=== PATIENT | female | born 1950 | race Caucasian/White ===

== ENCOUNTER 2021-12-27 08:49 | Outpatient (RCR) | payer MEDICARE, SELFPAY | END 2022-01-08 23:59 | disposition home or self-care (01) | LOC: CCIC 08:49 | PROVIDERS: PCP Family Medicine; Visit Provider Internal Medicine Hematology & Oncology | DX: C50.911 Malignant neoplasm of unspecified site of right female breast (principal); Z17.0 Estrogen receptor positive status [ER+]; D05.11 Intraductal carcinoma in situ of right breast; Z79.811 Long term (current) use of aromatase inhibitors; M85.80 Other specified disorders of bone density and structure, unspecified site; L59.8 Other specified disorders of the skin and subcutaneous tissue related to radiation | CPT/HCPCS: 99212; 99214 ==

== ENCOUNTER 2022-07-04 08:55 | Outpatient (CLI) | payer MEDICARE, SELFPAY ==
--- NOTE | 2022-07-04 09:15 | CRLHL7_ITS ---
For Patients: As a result of the Century Cures Act, medical imaging exams and procedure reports are released immediately into your electronic medical record. You may view this report before your referring provider. If you have questions, please contact your health care provider. BILATERAL SCREENING MAMMOGRAM WITH COMPUTER-AIDED DETECTION AND TOMOSYNTHESIS TECHNIQUE: CC and MLO views were obtained. These mammographic images have been obtained using full-field digital technique. These mammographic images were interpreted with the benefit of computer-aided detection. Breast tomosynthesis was used in this interpretation. COMPARISON FILM: 05/19/21, 03/02/20, 12/31/18. FINDINGS: There are scattered areas of fibroglandular density. IMPRESSION: There is no radiographic evidence for malignancy. ASSESSMENT: BI-RADS Category 2: Benign RECOMMENDATION: Routine screening mammogram in 1 year. A lay language report of this examination will be provided to the patient. VERONICA BECERRIL M.D. Diagnostic/Nuclear Medicine Radiologist [email or web address] Transcribed: 3:[address]/Dictated by: Veronica Becerril MD @ 07/04/2022 9:30:00 AM (Electronically Signed)
== END 2022-07-04 08:56 | disposition home or self-care (01) ==
LOC: MAMMO 08:55
PROVIDERS: PCP Family Medicine; Visit Provider Internal Medicine Hematology & Oncology
DX: Z12.31 Encounter for screening mammogram for malignant neoplasm of breast (principal)
CPT/HCPCS: 77063; 77067

== ENCOUNTER 2022-07-10 11:04 | Outpatient (CLI) | payer MEDICARE, SELFPAY ==
[2022-07-10 12:22] LABS: Albumin* 3.9 g/dL (3.3-5.0); Chloride* 105 mmol/L (96-114)
[2022-07-10 12:23] LABS: Potassium* 4.3 mmol/L (3.6-5.1); Sodium* 138 mmol/L (135-149)
[2022-07-10 12:25] LABS: Alkaline Phosphatase* 107 U/L (40-150); Aspartate Amino Transferase* 23 U/L (12-35); Bilirubin Total* 0.5 mg/dL (0.1-1.5); Blood Urea Nitrogen* 17 mg/dL (7-30); Carbon Dioxide* 29 mmol/L (20-32); Cholesterol* 169 mg/dL (90-199); Creatinine* 0.9 mg/dL (0.5-1.5); Estimated Glomerular Filt Rate 67 ml/min; Total Protein* 6.7 g/dL (6.0-8.3)
[2022-07-10 12:26] LABS: Alanine Aminotransferase* 26 U/L (4-35); Glucose* 106 mg/dL (60-115); HDL Cholesterol* 61 mg/dL (>=50); LDL Cholesterol Calculated 89 mg/dL (<100); Triglycerides* 94 mg/dL (40-149)
[2022-07-10 12:57] LABS: Vitamin D 25 Hydroxy* 55 ng/mL (30-80)
== END 2022-07-10 11:05 | disposition home or self-care (01) ==
PROVIDERS: PCP Family Medicine; Visit Provider Family Medicine
DX: Z00.00 Encounter for general adult medical examination without abnormal findings (principal); E78.5 Hyperlipidemia, unspecified; M85.80 Other specified disorders of bone density and structure, unspecified site; E66.9 Obesity, unspecified; R73.03 Prediabetes
CPT/HCPCS: 80053; 80061; 82306

== ENCOUNTER 2022-08-21 09:16 | Outpatient (CLI) | payer MEDICARE, SELFPAY | END 2022-08-21 09:17 | disposition home or self-care (01) | LOC: OP CLINIC 09:18 | PROVIDERS: PCP Family Medicine; Visit Provider Surgery | DX: Z12.11 Encounter for screening for malignant neoplasm of colon (principal); K63.5 Polyp of colon; Z86.010 Personal history of colon polyps | CPT/HCPCS: 45385; 88302; 88305; 99153; J2250; J3010 ==

== ENCOUNTER 2022-09-11 13:30 | Outpatient (RCR) | payer MEDICARE, SELFPAY | END 2022-10-09 23:59 | disposition home or self-care (01) | LOC: CCIC 13:30 | PROVIDERS: PCP Family Medicine; Visit Provider Physician Assistant | DX: C50.911 Malignant neoplasm of unspecified site of right female breast (principal); Z17.0 Estrogen receptor positive status [ER+]; Z79.811 Long term (current) use of aromatase inhibitors; M85.80 Other specified disorders of bone density and structure, unspecified site; L73.2 Hidradenitis suppurativa | CPT/HCPCS: 99212; 99214 ==

== ENCOUNTER 2023-07-11 13:03 | Outpatient (RCR) | payer MEDICARE, OTHER, SELFPAY | END 2023-07-31 23:59 | disposition home or self-care (01) | LOC: CCIC 13:03 | PROVIDERS: PCP Family Medicine; Visit Provider Internal Medicine Hematology & Oncology | DX: C50.911 Malignant neoplasm of unspecified site of right female breast (principal); Z17.0 Estrogen receptor positive status [ER+]; Z79.811 Long term (current) use of aromatase inhibitors; M85.80 Other specified disorders of bone density and structure, unspecified site; L59.8 Other specified disorders of the skin and subcutaneous tissue related to radiation | CPT/HCPCS: 99212; 99214; 99215; G0463 ==

== ENCOUNTER 2023-07-26 09:16 | Outpatient (CLI) | payer MEDICARE, OTHER, SELFPAY ==
--- NOTE | 2023-07-26 09:45 | MM_ITS ---
Patient: MOISÉS PUENTE Facility:?[facility] Patient ID:?[id number] Site Patient ID:?[id number]. Site :?[id number] Study:?XRay-Breast Bilateral 3D W/CAD-07/26/2023 10:04:31 AM Ordering Physician:Mason Final Report: BILATERAL DIGITAL TOMOSYNTHESIS SCREENING MAMMOGRAM WITH COMPUTER-AIDED DETECTION AND TOMOSYNTHESIS 07/26/2023 CLINICAL HISTORY: Routine screening exam. COMPARISON: 07/04/2022, 05/19/2021, 03/02/2020. TECHNIQUE: Digital tomosynthesis mammogram in CC and MLO projections including computer- aided detection (CAD) and tomosynthesis. BREAST COMPOSITION: Heterogeneously dense. FINDINGS: RIGHT Breast: Posttreatment changes. No suspicious findings. LEFT Breast: No suspicious findings. IMPRESSION: No suspicious findings. RECOMMENDATIONS: Annual bilateral screening mammography. BI-RADS Category 2. Benign A lay language report of this examination will be provided to the patient. Dictated by Lm Nance MD @ 07/26/2023 11:02:28 AM Signed by: Lm Nance @ 07/26/2023 11:02:28 AM (Electronic Signature) Signed by:?Lm Nance MD @07/26/2023 12:48:02 PM (Electronic Signature)
== END 2023-07-26 09:17 | disposition home or self-care (01) ==
LOC: MAMMO 09:16
PROVIDERS: PCP Family Medicine; Visit Provider Family Medicine
DX: Z12.31 Encounter for screening mammogram for malignant neoplasm of breast (principal); R92.2 Inconclusive mammogram
CPT/HCPCS: 77063; 77067

== ENCOUNTER 2023-07-27 08:05 | Outpatient (CLI) | payer MEDICARE, OTHER, SELFPAY | END 2023-07-27 08:06 | disposition home or self-care (01) | LOC: NFLDREF 12:25 | PROVIDERS: PCP Family Medicine; Referring Provider Family Medicine; Visit Provider Family Medicine | DX: E55.9 Vitamin D deficiency, unspecified (principal); E78.5 Hyperlipidemia, unspecified; I10 Essential (primary) hypertension; M85.80 Other specified disorders of bone density and structure, unspecified site; R73.03 Prediabetes | CPT/HCPCS: 80053; 80061; 82306 ==

== ENCOUNTER 2023-09-19 08:04 | Outpatient (CLI) | payer MEDICARE, OTHER, SELFPAY | END 2023-09-19 08:05 | disposition home or self-care (01) | LOC: NFLDREF 09-21 07:05 | PROVIDERS: PCP Family Medicine; Referring Provider Family Medicine; Visit Provider Family Medicine | DX: I10 Essential (primary) hypertension (principal) | CPT/HCPCS: 80048 ==

== ENCOUNTER 2023-10-03 08:02 | Outpatient (CLI) | payer MEDICARE, OTHER, SELFPAY | END 2023-10-03 08:03 | disposition home or self-care (01) | LOC: NFLDREF 10-04 07:25 | PROVIDERS: PCP Family Medicine; Referring Provider Family Medicine; Visit Provider Family Medicine | DX: E87.5 Hyperkalemia (principal) | CPT/HCPCS: 80048 ==

== ENCOUNTER 2023-10-24 12:41 | Outpatient (CLI) | payer MEDICARE, OTHER, SELFPAY ==
--- NOTE | 2023-10-24 13:00 | XR_ITS ---
Patient: MOISÉS PUENTE Facility:?[facility] Patient ID:?[id number] Site Patient ID:?[id number]. Site :?10/02/1955 Study:?DEXA-Bone Density -10/24/2023 1:27:59 PM Ordering Physician:JOSEF Final Report: DXA BONE MINERAL DENSITY STUDY Current height (in): 61.5. Weight (lb): 187.0. Menopause age: 53. Ethnicity: White. Reason for exam: Osteopenia. Aromatase inhibitor use. 1. Have you had a previous hip or vertebral fracture? No. 2. Have you had any fractures during your adult life which did not result from significant trauma (e.g., auto accident)? Yes. 3. Did either of your parents have a hip fracture? Yes. 4. Do you smoke? No. 5. Have you ever taken Glucocorticoids? No. 6. Do you have rheumatoid arthritis? No. 7. Do you have secondary osteoporosis? No. 8. Do you drink 3 or more alcoholic drinks per day? No. 9. Are you being treated for osteoporosis? No. 10. Have you ever taken any of the following medications: Actonel, Evista, Fosamax, Miacalcin, Reclast, Boniva, Forteo, HRT (i.e. estrogen/hormone therapy), Protelos, Prolia, Vitamin D, Calcium, other ? please specify. ANSWER: Yes. Vitamin D, calcium, HRT. 11. Do you have any of the following medical conditions: Anorexia or bulimia, asthma or emphysema, end stage renal disease, hyperparathyroidism, any seizure disorders, cancer, inflammatory bowel diseases, hysterectomy, other ? please specify. ANSWER: Yes, cancer. 12. What was your maximum height (inches)? 62. 13. Do you perform weight bearing exercise regularly? No. 14. Do you regularly consume dairy products? Yes. 15. Do you drink caffeinated beverages? Yes. 16. At what age did your period start? 11. 17. Are you premenopausal? No. 18. How many full-term pregnancies have you had? 1. 19. Have you ever missed your period for more than 6 months in a row (not including or menopause)? No. TECHNIQUE: Bone mineral density study was performed using the [employer]. FINDINGS: The results of the study expressed as bone mineral density (BMD) are as follows: Lumbar spine L1 to L4: BMD: 0.863 g/cm2. T-score: -1.7. Z-score: 0.7 Neck Left: BMD: 0.632 g/cm2. T-score: -2.0. Z-score: 0.1 Right: BMD: 0.636 g/cm2. T-score: -1.9. Z-score: 0.2 Total Left: BMD: 0.878 g/cm2. T-score: -0.5. Z-score: 1.3 Right: BMD: 0.871 g/cm2. T-score: -0.6. Z-score: 1.2 IMPRESSION: Osteopenia. *Comparison exams done prior to 11/2019 were performed on different unit, [employer]. COMPARISON: Compared with scan of 06/16/2021, the bone mineral density has increased by 3.1 percent at the spine and decreased by 1.2 percent at the hip. FRAX 10-year Fracture Risk Major Osteoporotic Fracture: 30 percent Hip Fracture: 16 percent Reported Risk Factors: [place] () Neck BMD = 0.632, BMI = 34.8 Lm Nance M.D. Diagnostic Radiologist [email or web address] CROW/jovany: D& Transcribed: 12:33 pm DW/Dictated by: Lm Nance MD @ 10/25/2023 11:10:00 AM Signed by:?Lm Nance MD @10/25/2023 1:07:56 PM (Electronic Signature)
== END 2023-10-24 12:42 | disposition home or self-care (01) ==
LOC: RAD 12:41
PROVIDERS: PCP Family Medicine; Visit Provider Internal Medicine Hematology & Oncology
DX: M85.80 Other specified disorders of bone density and structure, unspecified site (principal); M85.89 Other specified disorders of bone density and structure, multiple sites; Z79.811 Long term (current) use of aromatase inhibitors
CPT/HCPCS: 77080

== ENCOUNTER 2024-04-28 10:30 | Outpatient (RCR) | payer MEDICARE, OTHER, SELFPAY | END 2024-04-28 23:59 | disposition home or self-care (01) | LOC: CCIC 10:30 | PROVIDERS: PCP Family Medicine; Visit Provider Physician Assistant | DX: C50.911 Malignant neoplasm of unspecified site of right female breast (principal); Z17.0 Estrogen receptor positive status [ER+]; Z79.811 Long term (current) use of aromatase inhibitors; M85.80 Other specified disorders of bone density and structure, unspecified site; I10 Essential (primary) hypertension | CPT/HCPCS: 99214; G0463 ==

== ENCOUNTER 2025-02-02 08:00 | Outpatient (CLI) | payer MEDICARE, OTHER, SELFPAY | END 2025-02-02 08:01 | disposition home or self-care (01) | LOC: NFLDREF 02-03 18:01 | PROVIDERS: PCP Family Medicine; Referring Provider Family Medicine; Visit Provider Family Medicine | DX: E78.5 Hyperlipidemia, unspecified (principal); I10 Essential (primary) hypertension; R73.03 Prediabetes; E55.9 Vitamin D deficiency, unspecified; M85.89 Other specified disorders of bone density and structure, multiple sites | CPT/HCPCS: 80053; 80061; 82306 ==

== ENCOUNTER 2025-02-05 11:28 | Outpatient (CLI) | payer MEDICARE, OTHER, SELFPAY ==
--- NOTE | 2025-02-05 11:30 | CRLHL7_ITS ---
For Patients: As a result of the Cures Act, medical imaging exams and procedure reports are released immediately into your electronic medical record. You may view this report before your referring provider. If you have questions, please contact your health care provider. BILATERAL DIAGNOSTIC MAMMOGRAM WITH COMPUTER-AIDED DETECTION AND TOMOSYNTHESIS RIGHT BREAST ULTRASOUND CLINICAL HISTORY: RIGHT breast erythema. COMPARISON: 07/26/2023, 07/04/2022, 06/28/2021. TECHNIQUE: Digital BILATERAL mammogram in four projections with computer-aided detection. Tomosynthesis was used in this interpretation. Real-time ultrasound imaging of RIGHT breast with imaging documentation. BREAST COMPOSITION: There are scattered areas of fibroglandular density. FINDINGS: 3D CC/MLO BILATERAL mammogram images submitted. Posttreatment changes RIGHT breast. Benign calcification LEFT breast. No suspicious masses or architectural distortion. Targeted RIGHT breast ultrasound performed in the areas of concern at 2 o`clock 7 cm from the nipple and 12 o`clock 9 cm from the nipple. Normal breast tissue is present. No fluid collection or mass. No abscess. No sebaceous cyst. IMPRESSION: No evidence of malignancy. RECOMMENDATIONS: Routine screening mammography. Clinical follow-up. A lay language report of this examination will be provided to the patient. BI-RADS Category 2: Benign Dictated by Lm Nance MD @ 02/05/2025 2:22:52 PM /sp SP/Dictated by: Lm Nance MD @ 02/05/2025 2:22:00 PM (Electronically Signed)
--- NOTE | 2025-02-05 12:00 | CRLHL7_ITS ---
For Patients: As a result of the Century Cures Act, medical imaging exams and procedure reports are released immediately into your electronic medical record. You may view this report before your referring provider. If you have questions, please contact your health care provider. PLEASE SEE BILATERAL BREAST DIAGNOSTIC MAMMOGRAM PERFORMED SAME DAY. CRL:sp SP/Dictated by: Lm Nance MD @ 02/05/2025 2:23:00 PM (Electronically Signed)
== END 2025-02-05 11:29 | disposition home or self-care (01) ==
PROVIDERS: PCP Family Medicine; Visit Provider Physician Assistant
DX: C50.911 Malignant neoplasm of unspecified site of right female breast (principal); L53.9 Erythematous condition, unspecified
CPT/HCPCS: 76642; 77066; G0279

== ENCOUNTER 2025-02-10 08:22 | Outpatient (CLI) | payer MEDICARE, OTHER, SELFPAY | END 2025-02-10 08:23 | disposition home or self-care (01) | LOC: NFLDREF 02-11 04:53 | PROVIDERS: PCP Family Medicine; Referring Provider Family Medicine; Visit Provider Obstetrics & Gynecology | DX: R33.9 Retention of urine, unspecified (principal) | CPT/HCPCS: 87086 ==

== ENCOUNTER 2025-02-19 07:15 | Outpatient (CLI) | payer MEDICARE, OTHER, SELFPAY ==
[2025-02-19 10:01] VITALS: BMI 35.7
== END 2025-02-19 07:16 | disposition home or self-care (01) ==
LOC: NUTRITION 07:16
PROVIDERS: PCP Family Medicine; Visit Provider Dietitian, Registered
DX: E66.9 Obesity, unspecified (principal); Z68.36 Body mass index [BMI] 36.0-36.9, adult; Z71.3 Dietary counseling and surveillance
CPT/HCPCS: G0463

== ENCOUNTER 2025-03-05 11:11 | Outpatient (CLI) | payer MEDICARE, OTHER, SELFPAY ==
[2025-03-05 09:41] VITALS: BMI 35.7
== END 2025-03-05 11:12 | disposition home or self-care (01) ==
LOC: NUTRITION 11:12
PROVIDERS: PCP Family Medicine; Visit Provider Dietitian, Registered
DX: E66.9 Obesity, unspecified (principal); Z68.36 Body mass index [BMI] 36.0-36.9, adult; Z71.3 Dietary counseling and surveillance
CPT/HCPCS: G0463

== ENCOUNTER 2025-04-30 13:39 | Outpatient (CLI) | payer MEDICARE, OTHER, SELFPAY | END 2025-04-30 13:40 | disposition home or self-care (01) | LOC: NFLDREF 13:41 | PROVIDERS: PCP Family Medicine; Visit Provider Family Medicine | DX: Z01.818 Encounter for other preprocedural examination (principal); I10 Essential (primary) hypertension | CPT/HCPCS: 80048 ==

== ENCOUNTER 2025-05-20 09:29 | Day surgery (SDC) | payer MEDICARE, OTHER, SELFPAY ==
[2025-05-20] MEDS: LACTATED RINGERS 1000 ML 1,000 ML 100 ML IV ×2 (09:35→13:43)
[2025-05-20 09:46] VITALS: BMI 34.9
[2025-05-20 10:09] VITALS: BP 137/77; PULSE 77; RESP 16; TEMP 36.9; O2SAT 96
[2025-05-20] MEDS: SODIUM CHLORIDE 0.9 % (FLUSH) 10 ML SYRINGE IVF (10:12)
--- NOTE | 2025-05-20 11:51 | P.ANES_ITS ---
Anesthesia Charges Start Date/Time Anesthesia Start Date: 05/20/25 Anesthesia Start Time: 11:56 Stop Date/Time Anesthesia Stop Date: 05/20/25 Anesthesia Stop Time: 14:00 Summary Extremes of Age - Over 70 or under 1: MDA Coding CPT Codes CPT Codes: ANESTH LOWER LEG BONE SURG - 01126 ([id number]) P2 - PATIENT W/MILD SYST DISEASE, QK - FLOUR MIXER 2-4 CNCRNT ANES PROC, QX - BAT CARRIER SVC W/ MD MED DIRECTION Additional Codes: Summary - Extremes of Age - Over 70 or under 1: MDA ([id number])
--- NOTE | 2025-05-20 11:51 | W.ANESCHARGE ---
Anesthesia Charges Start Date/Time Anesthesia Start Date: 05/20/25 Anesthesia Start Time: 11:56 Stop Date/Time Anesthesia Stop Date: 05/20/25 Anesthesia Stop Time: 14:00 Summary Extremes of Age - Over 70 or under 1: MDA Coding CPT Codes CPT Codes: ANESTH LOWER LEG BONE SURG - 46573 ([id number]) P2 - PATIENT W/MILD SYST DISEASE, QK - WEBSPHERE DEVELOPER 2-4 CNCRNT ANES PROC, QX - FINISH SANDER SVC W/ MD MED DIRECTION Additional Codes: Summary - Extremes of Age - Over 70 or under 1: MDA ([id number])
[2025-05-20] MEDS: BUPIVACAINE 0.25% 30 ML INJECTION (13:44)
[2025-05-20 13:58] VITALS: BP 116/64; PULSE 64; RESP 14; TEMP 36.4; O2SAT 96
--- NOTE | 2025-05-20 14:04 | W.PODPROC_ITS ---
Date of Procedure: 05/20/25 Time Seen by Provider: 14:04 Surgeon: Reva Hernandez DPM Co-Surgeon: Prince Hein DPM Pre-op Diagnosis: 1. Hallux rigidus, right foot 2. Ganglion cyst, right foot Post-op Diagnosis: 1. Hallux rigidus, right foot 2. Ganglion cyst, right foot Type of Procedure: 1. 1st MPJ fusion right foot 2. Ganglion cyst excision right foot 3. Bone graft harvest right foot Procedure Description: The patient was identified prior to being brought back into the operating room using their name and date of as patient identifiers. The intended surgical care plan was then reviewed in detail with the patient as well as rationale for surgery, most common risks, complications, and expected recovery course. The patient was given opportunity to ask questions, which were to the best of my ability. Patient ultimately voiced no questions or concerns and agreed to proceed forward with the surgery as planned. The patient was brought from the preoperative holding area to the operating room, and placed on the operating room table in the supine positions. At this time a timeout was performed by myself and operating room staff to identify the proper patient, site and operation to be performed. A well padded pneumatic ankle tourniquet was applied to the patient's right lower extremity. The left extremity was then scrubbed, prepped and draped in the normal sterile fashion.? The lateral aspect of the calcaneus was penetrated with a large bore needle using standard technique and bone marrow along with chips of cancellous bone within the calcaneus was aspirated in 0.5-cc increments with redirection between each increment until an appropriate volume of bone marrow aspirate was obtained for use with the operative procedure performed. The integrity of the bone marrow aspiration/bone graft site was verified with stress palpation. A linear incision was made on the dorsal-medial aspect of the right first metatarsal-phalangeal joint of the operative foot and the incision deepened through the subcutaneous layers with care taken to identify, retract, and protect all vital structures and coagulate any bleeders as necessary. A large and mobile, fluid-filled mass was encountered along the extensor hallucis longus. Metzenbaum scissors were utilized to bluntly dissect the mass from the overlying skin and underlying deep tissues. There were no incorporations of neurovascular structures into the mass. The mass was lanced and excised from the tendon sheath and passed off the field in total. The area once occupied by the mass was thoroughly inspected for any remnants. None were found. The incision was then deepened to the capsule and periosteum overlying the first metatarsal-phalangeal joint where a linear capsulotomy? was performed to free the dorsal, medial, and lateral aspects of the first metatarsal head and base of the proximal phalanx. The first metatarsal head, base of the proximal phalanx, and sesamoids were visualized and the joint was deemed non-salvageable. Using a combination of hand-held and power instruments, the first metatarsal head and base of the proximal phalanx were resected in [id number] fashion followed by fenestration of the remaining subchondral bone plate to expose raw cancellous bone substrate throughout the operative site. The base of the proximal phalanx was aligned according to the patients anatomic and functional needs paying attention to standard guidelines for optimum position and maintained in this position manually. The forefoot was loaded and anatomic soft-tissue and osseous reduction was appreciated with good osseous apposition noted. The previous created bone graft mixture was packed in the osseous defects to promote healing. A K wire was temporarily used to provide fixation. A dorsal locking plate was placed over the fusion site. Distal locking screws were deployed and the compression plate mechanism was used to provide compression across the arthrodesis site with osseous apposition maintained. Additional locking screws were deployed along the proximal aspect the plate. Intra-operative image intensification demonstrated proper alignment, stability, osseous apposition, and screw placement. The K wires were removed at this time. Intra-operative im age intensification demonstrated proper alignment, stability, osseous apposition, and plate and screw placement. The surgical sites were copiously irrigated with sterile saline and hemostasis obtained with electrocautery. The deep tissues were approximated with absorbable suture and the skin edges approximated without tension using non-absorbable sutures. Upon release of the pneumatic tourniquet, immediate reperfusion of toes 1 through 5 was noted. A postoperative dressing consisting of xeroform, cast padding, Kerlix, 4 x 4's, and an GIANNA bandage was applied to the patient's left foot. The patient was transferred from the operating room to the post anesthesia care unit with vital signs stable and vascular status intact to the right lower extremity. The patient appeared to tolerate both the procedure and anesthesia well. Anesthesia: MAC and local (30cc of 0.25% marcaine plain ) Hemostasis: ankle (250mmHg for 91 min ) Estimated blood loss (mL): 15 Provider Operated C-arm: 8 images taken with a total of 16 sec of fluoro time operated by myself Implants: Max force compression plate (arthrex), locking screws x 5, nonlocking screw x1 Specimens: none sent Disposition: same day
--- NOTE | 2025-05-20 14:05 | P.ANES_ITS ---
Anesthesia Charges Start Date/Time Anesthesia Start Date: 05/20/25 Anesthesia Start Time: 11:56 Stop Date/Time Anesthesia Stop Date: 05/20/25 Anesthesia Stop Time: 14:00 Summary Extremes of Age - Over 70 or under 1: BLOCK CUBER Coding CPT Codes CPT Codes: ANESTH LOWER LEG BONE SURG - 81009 ([id number]) P2 - PATIENT W/MILD SYST DISEASE, QK - BELLING MACHINE OPERATOR 2-4 CNCRNT ANES PROC, QX - BLOCK CUBER SVC W/ MD MED DIRECTION Additional Codes: Summary - Extremes of Age - Over 70 or under 1: BLOCK CUBER ([id number])
--- NOTE | 2025-05-20 14:05 | W.ANESCHARGE ---
Anesthesia Charges Start Date/Time Anesthesia Start Date: 05/20/25 Anesthesia Start Time: 11:56 Stop Date/Time Anesthesia Stop Date: 05/20/25 Anesthesia Stop Time: 14:00 Summary Extremes of Age - Over 70 or under 1: PURCHASING ANALYST Coding CPT Codes CPT Codes: ANESTH LOWER LEG BONE SURG - 97761 ([id number]) P2 - PATIENT W/MILD SYST DISEASE, QK - DIRECTOR OF STRATEGIC SOURCING 2-4 CNCRNT ANES PROC, QX - PURCHASING ANALYST SVC W/ MD MED DIRECTION Additional Codes: Summary - Extremes of Age - Over 70 or under 1: PURCHASING ANALYST ([id number])
[2025-05-20 14:13] VITALS: BP 124/70; PULSE 56; RESP 14; O2SAT 98
[2025-05-20 14:28] VITALS: BP 109/64; PULSE 59; RESP 14; O2SAT 93
[2025-05-20] MEDS: ACETAMINOPHEN 500 MG TABLET 1000 MG PO (14:29)
== END 2025-05-20 15:37 | disposition home or self-care (01) ==
LOC: OR 09:30
PROVIDERS: PCP Family Medicine; Visit Provider Podiatrist
PROC: (CPT 28740; principal; 2025-05-20 10:45)
DX: M20.21 Hallux rigidus, right foot (principal); M67.471 Ganglion, right ankle and foot
CPT/HCPCS: 28289; 28090; 20900; 01480; 73620; 76000; 99100; A9270; C1713; J0665; J0690; J1100; J2371; J2405; J2704; J3010; J3490; J7120; L1833